=== PATIENT | female | born 1950 | race Caucasian/White ===

== ENCOUNTER 2019-06-21 17:20 | Emergency (ER) | payer MEDICARE, MEDICAID ==
[~2019-06-21] VITALS: Ht 162.6 cm; Wt 52.3 kg
[2019-06-21 18:01] LABS: BASOPHILS % (AUTO) 0.3 % (0-1); EOSINOPHILS % (AUTO) 0.1 % (0-6); HEMATOCRIT 37.9 % (35.0-45.0); LYMPHOCYTES # (AUTO) 1.7 X10'3 (1.1-4.8); LYMPHOCYTES % (AUTO) 13.2 % (21-51); MEAN CORPUSCULAR HEMOGLOBIN 32.6 PG (27.0-31.0); MEAN CORPUSCULAR HGB CONC 34.2 g/dL (33.0-36.5); MEAN CORPUSCULAR VOLUME 95.5 FL (78-98); MEAN PLATELET VOLUME 7.1 FL (7.4-10.4); MONOCYTES # (AUTO) 1.8 X10'3 (0-0.9); NEUTROPHILS # (AUTO) 9.2 X10'3 (1.8-7.7); NEUTROPHILS % (AUTO) 72.4 % (42-75); PLATELET COUNT 299 X10'3 (140-440); RED BLOOD COUNT 3.97 X10'6 (4.20-5.60); RED CELL DISTRIBUTION WIDTH 14.9 % (11.5-14.5); WHITE BLOOD COUNT 12.7 X10'3 (4.5-11.0)
[2019-06-21 18:03] LABS: PARTIAL THROMBOPLASTIN TIME 30 SECONDS (22-32)
[2019-06-21 18:10] LABS: ALANINE AMINOTRANSFERASE 19 U/L (12-78); ALBUMIN 3.8 G/DL (3.4-5.0); ALKALINE PHOSPHATASE 103 IU/L (46-116); ANION GAP 10 (8-16); ASPARTATE AMINO TRANSFERASE 17 U/L (10-37); BILIRUBIN,TOTAL 1.1 MG/DL (0.1-1.0); BLOOD UREA NITROGEN 8 MG/DL (7-18); BUN/CREATININE RATIO 11.9 (6.6-38.0); CALCIUM 9.6 MG/DL (8.5-10.1); CHLORIDE 95 MMOL/L (99-107); CREATININE 0.67 MG/DL (0.40-0.90); GLUCOSE 106 MG/DL (70-104); POTASSIUM 3.8 MMOL/L (3.5-5.1); SODIUM 132 MMOL/L (135-145); TOTAL PROTEIN 7.7 G/DL (6.4-8.2); eGFR 88 ML/MIN
--- NOTE | 2019-06-21 18:49 | NUR ---
Attempted IV access, pt moved and reports pain. IV removed, will ask another nurse to start IV access.
[2019-06-21] MEDS ORDERED: ipratropium/albuterol 3ml nebule NEB ONE (19:20)
--- NOTE | 2019-06-21 19:40 | NUR ---
PT asked to provide a urine specimen and she reports she has not had anything to drink and cannot void at this time.
[2019-06-21] MEDS ORDERED: LEVA15HF4 INH (20:07)
[2019-06-21] MEDS ORDERED: FLUT1DIS20 INH (20:07)
--- NOTE | 2019-06-21 20:23 | NUR ---
UA SENT TO LAB, FAMILY TOOK PT TO RESTROOM IN WHEELCHAIR, PT WAS ON ROOM AIR, O2 SAT 94% AFTER RESTROOM
[2019-06-21 20:30] VITALS: BP 150/67
[2019-06-21 20:31] LABS: CLARITY,URINE CLEAR (Clear); COLOR,URINE YELLOW (Yellow); GLUCOSE, URINE NEGATIVE (Neg); KETONES,URINE >=80 mg/dl (Neg); LEUKOCYTE ESTERASE ,URINE NEGATIVE (Neg); NITRITES, URINE NEGATIVE (Neg); OCCULT BLOOD,URINE NEGATIVE (Neg); PROTEIN,URINE TRACE mg/dl (Neg)
[2019-06-21 20:43] LABS: UA COLLECTION TYPE CLN CATCH MIDSTREAM
[2019-06-21 20:47] LABS: BACTERIA,URINE NONE SEEN /HPF (Neg); RBC,URINE 0-2 /HPF (0-2); SQUAMOUS EPITHELIAL CELL,UR MODERATE /LPF (FEW); TRANSITIONAL EPI CELLS,URINE FEW /HPF; YEAST FEW /HPF (NEGATIVE)
== END 2019-06-21 20:32 | disposition home or self-care (01) ==
LOC: ER 17:20
DX: J44.1 Chronic obstructive pulmonary disease with (acute) exacerbation (principal); F17.200 Nicotine dependence, unspecified, uncomplicated; Z87.01 Personal history of pneumonia (recurrent)
CPT/HCPCS: 36415; 71045; 80053; 81001; 83605; 84145; 84484; 85025; 85610; 85730; 87040; 87088; 93005; 94640; 94760; 99285

== ENCOUNTER 2019-06-25 13:23 | Inpatient (IN) | payer MEDICARE, MEDICAID ==
[~2019-06-25] VITALS: Ht 162.6 cm; Wt 52.0 kg
[~2019-06-25 13:23] MED LIST: FLUT1DIS20 INH; LEVA15HF4 INH
[2019-06-25] MEDS ORDERED: ipratropium/albuterol 3ml nebule NEB ONE (15:00)
[2019-06-25] MEDS ORDERED: methylPREDNISolone sod succ 125mg/2ml vial IV ONE (15:00)
[2019-06-25] MEDS ORDERED: levoFLOXACIN-Levaquin 750MG/D5 150 ML IV ONE (15:50)
[2019-06-25 15:52] LABS: BASOPHILS # (AUTO) 0.1 X10'3 (0-0.2); BASOPHILS % (AUTO) 0.4 % (0-1); EOSINOPHILS % (AUTO) 0.3 % (0-6); HEMATOCRIT 35.3 % (35.0-45.0); HEMOGLOBIN 12.3 g/dl (12.0-16.0); LYMPHOCYTES # (AUTO) 1.2 X10'3 (1.1-4.8); LYMPHOCYTES % (AUTO) 8.6 % (21-51); MEAN CORPUSCULAR HEMOGLOBIN 32.4 PG (27.0-31.0); MEAN CORPUSCULAR HGB CONC 34.8 g/dL (33.0-36.5); MEAN CORPUSCULAR VOLUME 93.2 FL (78-98); MEAN PLATELET VOLUME 6.5 FL (7.4-10.4); MONOCYTES # (AUTO) 1.7 X10'3 (0-0.9); MONOCYTES % (AUTO) 12.7 % (2-12); NEUTROPHILS # (AUTO) 10.5 X10'3 (1.8-7.7); PLATELET COUNT 389 X10'3 (140-440); RED BLOOD COUNT 3.78 X10'6 (4.20-5.60); RED CELL DISTRIBUTION WIDTH 14.4 % (11.5-14.5); WHITE BLOOD COUNT 13.5 X10'3 (4.5-11.0)
[2019-06-25 16:05] LABS: PARTIAL THROMBOPLASTIN TIME 30 SECONDS (22-32)
[2019-06-25 16:07] LABS: ALANINE AMINOTRANSFERASE 20 U/L (12-78); ALBUMIN 3.1 G/DL (3.4-5.0); ALBUMIN/GLOBULIN RATIO 0.7 (1.1-1.5); ALKALINE PHOSPHATASE 127 IU/L (46-116); ANION GAP 7 (8-16); ASPARTATE AMINO TRANSFERASE 18 U/L (10-37); BILIRUBIN,TOTAL 0.6 MG/DL (0.1-1.0); BLOOD UREA NITROGEN 7 MG/DL (7-18); BUN/CREATININE RATIO 12.3 (6.6-38.0); CALCIUM 9.2 MG/DL (8.5-10.1); CHLORIDE 95 MMOL/L (99-107); CREATININE 0.57 MG/DL (0.40-0.90); GLUCOSE 110 MG/DL (70-104); POTASSIUM 3.8 MMOL/L (3.5-5.1); SODIUM 133 MMOL/L (135-145); TOTAL CARBON DIOXIDE 30.7 MMOL/L (24-32); TOTAL PROTEIN 7.6 G/DL (6.4-8.2); eGFR > 90 ML/MIN
[2019-06-25] MEDS ORDERED: HYDROcodone/acetaminophen 5mg/325mg tablet PO PRN (17:00)
[2019-06-25] MEDS ORDERED: magnesium Cl slow-release 64mg tablet PO PRN (17:00)
[2019-06-25] MEDS ORDERED: mag hydrox/Alum hydrox/simeth 30ml oral suspension PO PRN (17:00)
[2019-06-25] MEDS ORDERED: potassium CL 10mEq/100ml bag 100 ML IV PRN ×2 (17:00)
[2019-06-25] MEDS ORDERED: magnesium 4gm in 100ml NS 100 ML IV PRN (17:00)
[2019-06-25] MEDS ORDERED: ondansetron/PF 4mg/2ml inj IV PRN (17:00)
[2019-06-25] MEDS: methylPREDNISolone sod succ 125mg/2ml vial IV SCH (17:00)
[2019-06-25] MEDS ORDERED: morphine 2 MG/ML inj. syringe IV PRN (17:00)
[2019-06-25] MEDS ORDERED: potassium Cl 20 mEq SR tablet PO PRN ×2 (17:00)
[2019-06-25] MEDS ORDERED: acetaminophen 325mg tablet PO PRN ×2 (17:00)
[2019-06-25] MEDS ORDERED: magnesium 2GM in 50ml NS 50 ML IV PRN (17:00)
[2019-06-25] MEDS ORDERED: LISI-600 PO (17:14)
[2019-06-25] MEDS ORDERED: CITA20TA28 PO (17:14)
[2019-06-25] MEDS ORDERED: ACET-1017 PO (17:14)
[2019-06-25] MEDS ORDERED: OXYB15TA19 PO (17:14)
[2019-06-25] MEDS ORDERED: METO50TA7 PO (17:19)
[2019-06-25] MEDS ORDERED: UMEC62.5 (17:19)
[2019-06-25] MEDS ORDERED: MULT-1141 PO (17:19)
[2019-06-25] MEDS ORDERED: LEVA15HF4 INH (17:19)
[2019-06-25] MEDS ORDERED: IPRA4AER IH (17:19)
[2019-06-25] MEDS: CefTRIAXone 2gm/D5W 50ml 50 ML IV SCH (18:23)
[2019-06-25 18:24] LABS: CLARITY,URINE SLIGHTLY CLOUDY (Clear); COLOR,URINE YELLOW (Yellow); GLUCOSE, URINE NEGATIVE (Neg); KETONES,URINE 40 mg/dl (Neg); LEUKOCYTE ESTERASE ,URINE NEGATIVE (Neg); NITRITES, URINE NEGATIVE (Neg); OCCULT BLOOD,URINE NEGATIVE (Neg); PROTEIN,URINE TRACE mg/dl (Neg)
[2019-06-25 18:38] LABS: UA COLLECTION TYPE CLN CATCH MIDSTREAM
[2019-06-25 18:39] LABS: BACTERIA,URINE FEW /HPF (Neg); RBC,URINE 0-2 /HPF (0-2); SQUAMOUS EPITHELIAL CELL,UR MODERATE /LPF (FEW); WBC,URINE 0-4 /HPF (0-4)
[2019-06-25 18:40] LABS: YEAST MODERATE /HPF (NEGATIVE)
[2019-06-25] MEDS: albuterol 2.5 MG/3 ML nebule NEB SCH ×2 (19:04→23:07)
--- NOTE | 2019-06-25 19:25 | NUR ---
Patient arrived to [facility] 3016M @1925. Patient walked out of [facility] onto the bed. A&Ox4. Vital signs 141/57, tHR 75, RR 24, SpO2 91% on RA, temp 98.2. Patient was oriented to the room, and showed the way to the bathroom by her neice at bedside. Placed on tele 51 and educated on reasoning for heart monitoring. Educated on MRSA swab and fall safety. Patient is SOB with exertion. Denies chest pain, nausea, burning on urination.
[2019-06-25 19:30] VITALS: BP 141/57
[2019-06-25] MEDS: K and/or MAG REPLACEMENT MC SCH (20:00)
[2019-06-25] MEDS: heparin, porcine 5000 units/ml vial SQ SCH (20:40)
[2019-06-25] MEDS: docusate sod 100mg capsule PO SCH (20:40)
[2019-06-25 22:00] VITALS: BP 130/50
[2019-06-25] MEDS: guaiFENesin 200 MG/10 ML oral syrup UD cup PO PRN (23:49)
--- NOTE | 2019-06-26 00:01 | NUR ---
MD was called and notified about the patient's observed continuous cough. New orders for Robitussin 100mg PO PRN q6h for cough and congestion were entered. Patient also takes Robitussin at home.
[2019-06-26 02:00] VITALS: BP 132/56
[2019-06-26 03:22] LABS: BASOPHILS % (AUTO) 0.4 % (0-1); EOSINOPHILS % (AUTO) 0 % (0-6); HEMATOCRIT 34.6 % (35.0-45.0); HEMOGLOBIN 12.1 g/dl (12.0-16.0); LYMPHOCYTES % (AUTO) 8.8 % (21-51); MEAN CORPUSCULAR HEMOGLOBIN 33.2 PG (27.0-31.0); MEAN CORPUSCULAR HGB CONC 35.1 g/dL (33.0-36.5); MEAN CORPUSCULAR VOLUME 94.7 FL (78-98); MEAN PLATELET VOLUME 6.6 FL (7.4-10.4); MONOCYTES # (AUTO) 0.3 X10'3 (0-0.9); MONOCYTES % (AUTO) 2.6 % (2-12); NEUTROPHILS # (AUTO) 9.7 X10'3 (1.8-7.7); NEUTROPHILS % (AUTO) 88.2 % (42-75); PLATELET COUNT 457 X10'3 (140-440); RED BLOOD COUNT 3.65 X10'6 (4.20-5.60); RED CELL DISTRIBUTION WIDTH 14.5 % (11.5-14.5)
[2019-06-26 03:29] LABS: ALANINE AMINOTRANSFERASE 18 U/L (12-78); ALBUMIN 2.8 G/DL (3.4-5.0); ALBUMIN/GLOBULIN RATIO 0.6 (1.1-1.5); ALKALINE PHOSPHATASE 125 IU/L (46-116); ANION GAP 9 (8-16); ASPARTATE AMINO TRANSFERASE 17 U/L (10-37); BILIRUBIN,TOTAL 0.3 MG/DL (0.1-1.0); BLOOD UREA NITROGEN 9 MG/DL (7-18); BUN/CREATININE RATIO 13.8 (6.6-38.0); CALCIUM 9.1 MG/DL (8.5-10.1); CHLORIDE 92 MMOL/L (99-107); CREATININE 0.65 MG/DL (0.40-0.90); GLUCOSE 156 MG/DL (70-104); POTASSIUM 4.1 MMOL/L (3.5-5.1); SODIUM 130 MMOL/L (135-145); TOTAL CARBON DIOXIDE 29.3 MMOL/L (24-32); TOTAL PROTEIN 7.4 G/DL (6.4-8.2); eGFR > 90 ML/MIN
[2019-06-26] MEDS: albuterol 2.5 MG/3 ML nebule NEB SCH ×6 (04:00→23:15)
--- NOTE | 2019-06-26 06:25 | NUR ---
Problems reprioritized. Patient report given, questions answered & plan of care reviewed with JASON Obregon.
[2019-06-26 06:30] VITALS: BP 138/52
--- NOTE | 2019-06-26 06:30 | NUR ---
Patient in room PCU 3017G. I have received report from Chrissie GOMEZ and had the opportunity to ask questions and assume patient care.
[2019-06-26] MEDS: K and/or MAG REPLACEMENT MC SCH ×2 (08:00→19:36)
[2019-06-26] MEDS: guaiFENesin 200 MG/10 ML oral syrup UD cup PO PRN ×2 (08:11→14:12)
[2019-06-26] MEDS: CefTRIAXone 2gm/D5W 50ml 50 ML IV SCH (08:11)
[2019-06-26] MEDS: heparin, porcine 5000 units/ml vial SQ SCH ×2 (08:12→19:37)
[2019-06-26] MEDS: nicotine 14mg patch - 24hr TD SCH (08:12)
[2019-06-26] MEDS: docusate sod 100mg capsule PO SCH ×2 (08:12→19:37)
[2019-06-26] MEDS: methylPREDNISolone sod succ 125mg/2ml vial IV SCH (08:12)
[2019-06-26 11:00] VITALS: BP 143/53
--- NOTE | 2019-06-26 14:20 | NUR ---
paged PAGER ID: [phone] MESSAGE: Mindi PARKINSON. Rob Foote [id number]. Pt has Robitussin PRN but patient says not very effective, and requesting order for Miley Barry if possible. Thank you!
[2019-06-26 15:00] VITALS: BP 126/80
[2019-06-26 18:00] VITALS: BP 155/44
--- NOTE | 2019-06-26 18:31 | NUR ---
Patient in room PCU 3010S. I have received report from JASON Obregon and had the opportunity to ask questions and assume patient care.
[2019-06-26] MEDS: benzonatate 100mg capsule PO PRN (19:37)
[2019-06-26 22:00] VITALS: BP 133/53
[2019-06-27 02:00] VITALS: BP 145/53
[2019-06-27] MEDS: guaiFENesin 200 MG/10 ML oral syrup UD cup PO PRN (02:50)
[2019-06-27] MEDS: albuterol 2.5 MG/3 ML nebule NEB SCH ×4 (03:47→15:04)
--- NOTE | 2019-06-27 06:15 | NUR ---
Pt is stable on shift change. Problems reprioritized. Patient report given, questions answered & plan of care reviewed with JASON Obregon.
--- NOTE | 2019-06-27 06:18 | NUR ---
Patient in room U 8208D. I have received report from Dorothy GOMEZ and had the opportunity to ask questions and assume patient care. Pt currently sleeping in bed
[2019-06-27 06:30] VITALS: BP 139/49
[2019-06-27 07:03] LABS: BASOPHILS # (AUTO) 0.1 X10'3 (0-0.2); BASOPHILS % (AUTO) 0.4 % (0-1); EOSINOPHILS % (AUTO) 0 % (0-6); HEMATOCRIT 34.4 % (35.0-45.0); HEMOGLOBIN 11.8 g/dl (12.0-16.0); LYMPHOCYTES # (AUTO) 2.6 X10'3 (1.1-4.8); LYMPHOCYTES % (AUTO) 15.7 % (21-51); MEAN CORPUSCULAR HEMOGLOBIN 32.2 PG (27.0-31.0); MEAN CORPUSCULAR HGB CONC 34.2 g/dL (33.0-36.5); MEAN CORPUSCULAR VOLUME 94.1 FL (78-98); MEAN PLATELET VOLUME 6.6 FL (7.4-10.4); MONOCYTES # (AUTO) 1.7 X10'3 (0-0.9); MONOCYTES % (AUTO) 10.1 % (2-12); NEUTROPHILS # (AUTO) 12.1 X10'3 (1.8-7.7); NEUTROPHILS % (AUTO) 73.8 % (42-75); PLATELET COUNT 512 X10'3 (140-440); RED BLOOD COUNT 3.65 X10'6 (4.20-5.60); RED CELL DISTRIBUTION WIDTH 14.5 % (11.5-14.5); WHITE BLOOD COUNT 16.4 X10'3 (4.5-11.0)
[2019-06-27] MEDS ORDERED: LEVA15HF4 INH (07:09)
[2019-06-27] MEDS: CefTRIAXone 2gm/D5W 50ml 50 ML IV SCH (07:20)
[2019-06-27] MEDS: methylPREDNISolone sod succ 125mg/2ml vial IV SCH (07:20)
[2019-06-27] MEDS: docusate sod 100mg capsule PO SCH (07:20)
[2019-06-27] MEDS: heparin, porcine 5000 units/ml vial SQ SCH (07:21)
[2019-06-27] MEDS: nicotine 14mg patch - 24hr TD SCH (07:21)
[2019-06-27 07:24] LABS: ALANINE AMINOTRANSFERASE 19 U/L (12-78); ALBUMIN 2.7 G/DL (3.4-5.0); ALBUMIN/GLOBULIN RATIO 0.7 (1.1-1.5); ALKALINE PHOSPHATASE 105 IU/L (46-116); ANION GAP 8 (8-16); ASPARTATE AMINO TRANSFERASE 20 U/L (10-37); BILIRUBIN,TOTAL 0.1 MG/DL (0.1-1.0); BLOOD UREA NITROGEN 10 MG/DL (7-18); BUN/CREATININE RATIO 18.5 (6.6-38.0); CALCIUM 9.1 MG/DL (8.5-10.1); CHLORIDE 98 MMOL/L (99-107); CREATININE 0.54 MG/DL (0.40-0.90); GLUCOSE 101 MG/DL (70-104); POTASSIUM 3.6 MMOL/L (3.5-5.1); SODIUM 136 MMOL/L (135-145); TOTAL CARBON DIOXIDE 30.2 MMOL/L (24-32); TOTAL PROTEIN 6.7 G/DL (6.4-8.2); eGFR > 90 ML/MIN
[2019-06-27] MEDS ORDERED: lisinopril 20mg tablet PO SCH (08:00)
[2019-06-27] MEDS: K and/or MAG REPLACEMENT MC SCH (08:00)
[2019-06-27] MEDS ORDERED: citalopram 20mg tablet PO SCH (08:00)
[2019-06-27] MEDS ORDERED: metoprolol succinate 25mg (24-HOUR) SR. Tablet PO SCH (08:00)
--- NOTE | 2019-06-27 08:53 | NUR ---
paged PAGER ID: [phone] MESSAGE: Mindi salinas [phone]. RE Rob Rao [id number]. Pt and family inquiring about possible discharge and wanted to speak to you when you come to floor.
--- NOTE | 2019-06-27 09:31 | NUR ---
O2 Sat at rest on room air:_86__% If below 89%: Recovery O2 Sat at rest on _3.5_LPM:___%:___% via__nasal cannula____(mask/nasal cannula, etc..) No further documentation is necessary. If O2 Sat did not drop below 89% on room air,ambulate patient on room air. O2 Sat while ambulating on room air:___% Recovery O2 Sat while ambulating on ___LPM:___% No further documentation is necessary. If patient does not drop below 89% while ambulating, he/she does not qualify for home O2.
--- NOTE | 2019-06-27 09:35 | NUR ---
Spoke with MD and patient in patients room. Notified MD that patient has been requiring more oxygen, lungs sounds diminished, and WBC's elevated to 16.4. Patient states she wants to go home. MD said will most likely discharge pt today, and this RN did O2 trial for patient and let case management know that she qualifies per trial.
[2019-06-27 11:00] VITALS: BP 145/50
--- NOTE | 2019-06-27 11:03 | NUR ---
Paged PAGER ID: [phone] MESSAGE: Mindi salinas [phone]. RE Rob Rao [id number]. Family is bedside. Will complete discharge once your orders are uploaded. Thank you!
[2019-06-27] MEDS ORDERED: PRED10TA23 PO (11:28)
[2019-06-27] MEDS ORDERED: CEFD300C3 PO (11:28)
--- NOTE | 2019-06-27 11:28 | NUR ---
Recovery 02 91% on 3.5 Liters
--- NOTE | 2019-06-27 12:11 | NUR ---
O2 Sat at rest on room air:_86__% If below 89%: Recovery O2 Sat at rest on _3.5__LPM:_91__%:___% via (mask/nasal cannula, etc..) No further documentation is necessary. When ambulating, patient maintained O2 89-90% on 3.5 L vai Nasal Cannula
--- NOTE | 2019-06-27 12:14 | NUR ---
Paged PAGER ID: [phone] MESSAGE: Mindi salinas [phone]. RE Rob Rao that case management is waiting for oxygen delivery and stated it will take at least a couple hours and will keep you updated if oxygen is unable to arrive today.
[2019-06-27] MEDS ORDERED: oxybutynin 5mg tablet PO SCH (13:00)
[2019-06-27] MEDS: benzonatate 100mg capsule PO PRN (14:16)
[2019-06-27 15:00] VITALS: BP 157/58
--- NOTE | 2019-06-27 16:20 | NUR ---
Per MD, patient stable for discharge home. Discharge packet provided and all questions answered. New prescriptions called into [facility] per patient request. Tele monitor removed and IV removed with catheter intact. Oxygen provided to patient from [facility], as patient has new demand for O2. All belongings sent with patient. Patient escorted from hospital accompanied by staff and family, and driven home by family via private vehicle.
[2019-06-27] MEDS ORDERED: lactobacillus rhamnosus 10,000 MMU CELLS/CAPSULE PO SCH (20:00)
== END 2019-06-27 16:18 | disposition home or self-care (01) | DRG 193 ==
LOC: ER 13:24 → ED HOLD 16:58 → EDBEDREQ 18:51 → PCU 3S 19:15
PROVIDERS: ADMIT Internal Medicine; ATTEND Hospitalist
DX: J18.9 Pneumonia, unspecified organism (principal); J96.01 Acute respiratory failure with hypoxia; J44.1 Chronic obstructive pulmonary disease with (acute) exacerbation; E87.1 Hypo-osmolality and hyponatremia; J44.0 Chronic obstructive pulmonary disease with (acute) lower respiratory infection; D72.829 Elevated white blood cell count, unspecified; E78.00 Pure hypercholesterolemia, unspecified; E78.5 Hyperlipidemia, unspecified; F17.200 Nicotine dependence, unspecified, uncomplicated; I10 Essential (primary) hypertension; I25.2 Old myocardial infarction; Z87.01 Personal history of pneumonia (recurrent); Z79.899 Other long term (current) drug therapy
CPT/HCPCS: 36415; 71045; 80053; 81001; 83605; 83735; 83880; 84145; 84484; 85025; 85610; 85730; 87040; 87081; 93005; 94640; 94760; 96365; 96375; 97116; 97161; 97530; 99285; G0378; J0696; J1644; J1956; J2930